=== PATIENT | male | born 1975 | race African-American/Black ===

== ENCOUNTER → 2023-04-06 | Outpatient (CLI) | payer OTHER | LOC: MHCPAIN 11:58 | DX: M47.817 Spondylosis without myelopathy or radiculopathy, lumbosacral region (principal); M48.061 Spinal stenosis, lumbar region without neurogenic claudication; M54.17 Radiculopathy, lumbosacral region | CPT/HCPCS: J1100; Q9967 ==

== ENCOUNTER → 2023-08-23 | Outpatient (CLI) | payer OTHER | LOC: MHCPAIN 09:54 | DX: M47.812 Spondylosis without myelopathy or radiculopathy, cervical region (principal); M48.02 Spinal stenosis, cervical region | CPT/HCPCS: G0463 ==

== ENCOUNTER → 2023-08-24 | Outpatient (CLI) | payer OTHER ==
[~2023-08-24] MED LIST: Atropine 1 MG/10 ML SYRINGE IV ONE; Iohexol 300 - 10 ML VIAL ONE; Lidocaine PF 2% (20 MG/ML) 2 ML VIAL ONE
== END ==
LOC: MHCPAIN 08:03
DX: M54.12 Radiculopathy, cervical region (principal)
CPT/HCPCS: J0461; J1100; Q9967

== ENCOUNTER → 2023-09-19 | Outpatient (CLI) | payer OTHER | LOC: MHCPAIN 08:01 | DX: M54.2 Cervicalgia (principal); M47.812 Spondylosis without myelopathy or radiculopathy, cervical region; M48.02 Spinal stenosis, cervical region | CPT/HCPCS: G0463 ==